=== PATIENT | female | born 1995 | race Caucasian/White ===

== ENCOUNTER 2016-11-21 20:05 | Emergency (ER) | payer SELFPAY ==
[2016-11-21] MEDS ORDERED: SODIUM CHLORIDE 0.9% 1,000 ML ONE (20:45)
== END 2016-11-21 23:07 | disposition home or self-care (01) ==
LOC: ER 20:05
DX: S80.12XA Contusion of left lower leg, initial encounter (principal); S80.11XA Contusion of right lower leg, initial encounter; V89.2XXA Person injured in unspecified motor-vehicle accident, traffic, initial encounter; Z33.1 Pregnant state, incidental
CPT/HCPCS: 36415; 80053; 82947; 85025; 85460; 86901; 93005; 96360